=== PATIENT | male | born 1950 | race Caucasian/White ===

== ENCOUNTER 2017-08-08 14:40 | Outpatient (CLI) | payer MEDICARE, MEDICAID | END 2017-08-08 23:59 | disposition home or self-care (01) | LOC: RAD 14:40 | PROVIDERS: ATTEND Surgery | DX: Z01.818 Encounter for other preprocedural examination (principal) | CPT/HCPCS: 71046 ==

== ENCOUNTER 2017-08-26 08:01 | Day surgery (SDC) | payer MEDICARE, OTHER ==
[2017-08-26] MEDS ORDERED: LIDOCAINE 1%-EPI 1:100,000 20 ML VIAL IJ ONE (08:02)
[2017-08-26] MEDS ORDERED: CEFAZOLIN SODIUM/DEXTROSE,ISO 50 ML IV ONE (09:28)
[2017-08-26] MEDS ORDERED: ROCURONIUM BROMIDE 50 MG/5 ML ONE (10:09)
[2017-08-26] MEDS ORDERED: BUPIVACAINE 0.25% 75 MG/30 ML VIAL ONE (10:27)
[2017-08-26] MEDS ORDERED: SEVOFLURANE 250 ML BOTTLE IH ONE (10:57)
[2017-08-26] MEDS ORDERED: IV LR 1000 ML 1,000 ML IV PRN (13:00)
[2017-08-26] MEDS ORDERED: IBUPROFEN 400 MG TABLET PO ONE (13:00)
[2017-08-26] MEDS ORDERED: GABAPENTIN 300 MG CAPSULE PO ONE (13:00)
[2017-08-26] MEDS ORDERED: ACETAMINOPHEN 325 MG TABLET PO ONE (13:00)
[2017-08-26] MEDS ORDERED: ACETAMINOPHEN 325 MG TABLET ONE (13:07)
== END 2017-08-26 13:53 | disposition home or self-care (01) ==
LOC: DS 08:01
PROVIDERS: ATTEND Surgery
DX: K40.31 Unilateral inguinal hernia, with obstruction, without gangrene, recurrent (principal); E11.9 Type 2 diabetes mellitus without complications; I10 Essential (primary) hypertension; J44.9 Chronic obstructive pulmonary disease, unspecified; E78.00 Pure hypercholesterolemia, unspecified; Z90.49 Acquired absence of other specified parts of digestive tract; Z87.891 Personal history of nicotine dependence
CPT/HCPCS: 49521; 82962; 88302; 88305; A6402; C1781; J0690 ×2; J1885; J2405; J2704; J3490 ×2; J7120